=== PATIENT | female | born 1990 | race Caucasian/White ===

== ENCOUNTER 2023-07-06 12:35 | Outpatient (CLI) | payer OTHER ==
[2023-07-06 13:01] LABS: BASOPHILS % (AUTO) 0.4 %; EOSINOPHILS # (AUTO) 0.1 10^3/uL (0.0-0.7); EOSINOPHILS % (AUTO) 1.2 %; HCT - HEMATOCRIT 35.5 % (37.0-47.0); HGB - HEMOGLOBIN 11.7 g/dL (12.0-16.0); LYMPHOCYTES # (AUTO) 1.5 10^3/uL (1.5-3.5); LYMPHOCYTES % (AUTO) 18.9 %; MEAN CORPUSCULAR HEMOGLOBIN 29.1 pg (27.0-31.0); MEAN CORPUSCULAR VOLUME 88.3 fL (81.0-99.0); MEAN PLATELET VOLUME 9.8 fL (7.9-10.8); MONOCYTES # (AUTO) 0.5 10^3/uL (0.0-1.0); MONOCYTES % (AUTO) 6.1 %; NEUTROPHILS # (AUTO) 5.6 10^3/uL (1.5-6.6); PLT - PLATELET COUNT 243 10^3/uL (130-450); RED BLOOD COUNT 4.02 10^6/uL (4.20-5.40); RED CELL DISTRIBUTION WIDTH 12.7 % (12.0-15.0); WHITE BLOOD COUNT 7.7 x10^3/uL (4.8-10.8)
[2023-07-06 14:16] LABS: ESTIMATED AVERAGE GLUCOSE 82 mg/dL (70-100); HEMOGLOBIN A1c% 4.5 % (4.27-6.07)
[2023-07-07 08:11] LABS: RPR Non Reactive (Non Reactive)
[2023-07-07 09:10] LABS: HBsAG SCREEN Negative (Negative); HCV AB Non Reactive (Non Reactive); HIV SCREEN 4TH GENERATION Non Reactive (Non Reactive); VARICELLA-ZOSTER AB IGG 444 index (Immune >165)
== END 2023-07-06 12:36 | disposition home or self-care (01) ==
LOC: LAB 12:35
PROVIDERS: ATTEND Nurse Practitioner Obstetrics & Gynecology
DX: Z36.89 Encounter for other specified antenatal screening (principal)
CPT/HCPCS: 36415; 83036; 85025; 86592; 86762; 86787; 86803; 86850; 86900; 86901; 87340; 87389

== ENCOUNTER 2023-09-15 16:00 | Outpatient (CLI) | payer OTHER ==
--- NOTE | 2023-09-16 09:58 | Ultrasound Report ---
PROCEDURE: OB Anatomy Scan INDICATIONS: SUPERVISION OF OUTSIDE/PRIOR DATING DATA: Last menstrual period (LMP): 04/27/2023. LMP-based estimated date of delivery (MALATHI): 02/01/2024. First dating scan (date and location): 06/24/2023. Estimated date of delivery (MALATHI) from first dating scan: 02/03/2024. The below data below was generated using the clinical MALATHI of 02/01/2024 TECHNIQUE: Real-time scanning was performed of the fetus, with image documentation and biometric measurements. Endovaginal scanning: Not performed. COMPARISON: No previous study is available for comparison. FINDINGS: General: A single living intrauterine gestation is present. Presentation: Variable Placenta: Placental position is anterior, without previa. Amniotic fluid index: 16.3 cm, within normal limits for gestational age. heart rate: 148 beats per minute. Maternal cervical canal: 5.1 cm long; normal length is 2.5 cm or more. biometrics: Biparietal diameter: 4.9 cm, 20 weeks 6 days, 78th percentile Head circumference: 18.0 cm, 20 weeks 3 days, 57th percentile Abdominal circumference: 15.4 cm, 20 weeks 4 days, 59th percentile Femur length: 3.2 cm, 19 weeks 6 days, 33rd percentile Estimated gestational age from initial scan: 20 weeks 1 day Composite gestational age from present scan: 20 weeks 1 day Estimated weight and percentile: 345 g, 55th percentile Measurement variability in biometric dating: +/- 10 days from 12-20 weeks gestation, +/- 2 weeks from 20-30 weeks gestation, +/- 3 weeks at 30 weeks gestation or later. Anatomic survey: Neuro: Ventricles are normal at less than 10 mm. Cisterna magna is normal at 3-11 mm. Cerebellum i s normal in size and morphology. Nuchal skin fold: Normal at less than 6 mm between 14 and 20 weeks gestational age. Face: Nose and lips, facial profile are not well visualized due to positioning. Spine: No evidence for spina bifida. Heart: 4-chambered heart and left ventricular outflow tract are not well visualized due to pos itioning. Right ventricular outflow tract appears normal. Diaphragm: Diaphragm is intact. Stomach: Left-sided stomach is present. Kidneys: No hydronephrosis. Normal is less than 5 mm in 2nd trimester, less than 7 mm in 3rd trimester. Cord: 3 vessel cord has orthotopic insertion. Bladder: Normal in size. Extremities: All 4 extremities are visualized. IMPRESSION: 1.Single live intrauterine with appropriate interval growth. 2. facial profile, nose/lips, heart, and ventricular outflow tracts are not well visualized due to positioning. Recommend follow-up exam. 3. anatomic survey is otherwise within normal limits. Reviewed by: Corona Garcia MD on 09/16/2023 9:57 AM PDT Approved by: Corona Garcia MD on 09/16/2023 9:57 AM PDT Station ID: [id number]
== END 2023-09-15 16:01 | disposition home or self-care (01) ==
LOC: DI 16:00
PROVIDERS: ATTEND Nurse Practitioner Obstetrics & Gynecology
DX: Z34.02 Encounter for supervision of normal first pregnancy, second trimester (principal); Z36.89 Encounter for other specified antenatal screening

== ENCOUNTER 2023-10-05 17:12 | Outpatient (CLI) | payer OTHER ==
--- NOTE | 2023-10-06 15:35 | Ultrasound Report ---
PROCEDURE: OB Follow up INDICATIONS: SUPERVISION OF OUTSIDE/PRIOR DATING DATA: Last menstrual period (LMP): 04/27/2023. LMP-based estimated date of delivery (MALATHI): 02/01/2024. First dating scan (date and location): 06/24/2023. Estimated date of delivery (MALATHI) from first dating scan: 02/03/2024. The below data below was generated using the clinical MALATHI of 02/01/2024 TECHNIQUE: Real-time scanning was performed of the fetus, with image documentation and biometric measurements. COMPARISON: OB ultrasound 09/15/2023 FINDINGS: General: A single living intrauterine gestation is present. Presentation: Vertex Placenta: Placental position is anterior, without previa. Amniotic fluid index: 17.8 cm, within normal limits for gestational age. Largest pocket 6 cm. heart rate: 141 beats per minute. Maternal cervical canal: 4.7 cm long; normal length is 2.5 cm or more. biometrics: Estimated gestational age from initial scan: 23 weeks 0 days Other: profile, nose lips as well as 4 chambered heart and outflow tracts are within normal acosta its. IMPRESSION: Single live intrauterine with gestational age 20 weeks 0 days. Anatomy including repeat views of the profile nose/lips as well as 4 chambered heart and outflo w tracts are within normal limits. Reviewed by: Shanta Ortega MD on 10/06/2023 3:34 PM PDT Approved by: Shanta Ortega MD on 10/06/2023 3:34 PM PDT Station ID: [id number]
== END 2023-10-05 17:13 | disposition home or self-care (01) ==
LOC: DI 17:12
PROVIDERS: ATTEND Nurse Practitioner Obstetrics & Gynecology
DX: Z34.02 Encounter for supervision of normal first pregnancy, second trimester (principal); Z36.89 Encounter for other specified antenatal screening

== ENCOUNTER 2023-11-15 09:45 | Outpatient (CLI) | payer OTHER ==
[2023-11-15 11:01] LABS: HCT - HEMATOCRIT 31.1 % (37.0-47.0); HGB - HEMOGLOBIN 10.1 g/dL (12.0-16.0); MEAN CORPUSCULAR HEMOGLOBIN 29.1 pg (27.0-31.0); MEAN CORPUSCULAR HGB CONC 32.5 g/dL (32.0-36.0); MEAN CORPUSCULAR VOLUME 89.6 fL (81.0-99.0); MEAN PLATELET VOLUME 9.8 fL (7.9-10.8); RED BLOOD COUNT 3.47 10^6/uL (4.20-5.40); RED CELL DISTRIBUTION WIDTH 13.2 % (12.0-15.0); WHITE BLOOD COUNT 9.2 x10^3/uL (4.8-10.8)
== END 2023-11-15 09:46 | disposition home or self-care (01) ==
LOC: LAB 09:45
PROVIDERS: ATTEND Nurse Practitioner Obstetrics & Gynecology
DX: Z36.9 Encounter for antenatal screening, unspecified (principal)
CPT/HCPCS: 36415; 82950; 85027

== ENCOUNTER 2023-11-30 08:03 | Outpatient (CLI) | payer OTHER ==
[2023-11-30 08:37] LABS: GTT GLUCOSE,FASTING 85 mg/dL (74-109)
== END 2023-11-30 08:04 | disposition home or self-care (01) ==
LOC: LAB 08:03
PROVIDERS: ATTEND Nurse Practitioner Obstetrics & Gynecology
DX: O99.810 Abnormal glucose complicating pregnancy (principal)
CPT/HCPCS: 36415; 82951; 82952

== ENCOUNTER 2024-02-03 23:28 | Inpatient (IN) | payer OTHER ==
[2024-02-03] MEDS ORDERED: miSOPROStoL 200 MCG TABLET PR PRN (23:44)
[2024-02-03] MEDS ORDERED: METHYLERGONOVINE 0.2 MG/ML VIAL IM PRN (23:44)
[2024-02-03] MEDS ORDERED: SODIUM CHLORIDE FLUSH 0.9% 10 ML SYRINGE IVP PRN (23:44)
[2024-02-03] MEDS ORDERED: CARBOPROST TROMETHAMINE 250 MCG/ML VIAL IM PRN (23:44)
[2024-02-03] MEDS ORDERED: TRANEXAMIC ACID IN NACL 1,000 MG/100 ML BAG IV PRN (23:44)
[2024-02-03] MEDS ORDERED: TERBUTALINE 1 MG/ML VIAL SUBQ PRN (23:44)
[2024-02-03] MEDS ORDERED: miSOPROStoL 200 MCG TABLET BC PRN (23:44)
[2024-02-03] MEDS ORDERED: lidocaine 1% 20 ML MDV ID PRN (23:44)
[2024-02-03] MEDS ORDERED: LACTATED RINGERS 1,000 ML IV PRN (23:44)
[2024-02-03] MEDS ORDERED: OXYTOCIN 10 UNIT/ML VIAL IM PRN (23:44)
[2024-02-03] MEDS ORDERED: SODIUM CHLORIDE FLUSH 0.9% 10 ML SYRINGE IVP SCH (23:45)
--- NOTE | 2024-02-03 23:49 | HISTORY & PHYSICAL EXAMINATION ---
Admit History - Visit Reason Visit Reason: Contractions - : 6 Parity: 4 Premature: 0 Ectopic: 1 : 4 Care: positive: [facility] - Mother's Labs Mother's Blood Type: positive: O Mother's RH: positive: Positive GBS: positive: Group B Step Negative Rubella Status: positive: Non-immune - Other Maternal History Other Maternal History: HPI: This 33 yo @ 40+ 2 weeks by LMP and confirmed by 8+2 week ultrasound presented to L&D after several hours of early labor at home. Upon arrival she was found to be philip 1.5-5 minutes and her cervix was 5/80/-1 and vertex with intact membranes. Hx of precipitous labor. [facility] duration of her which has remained uncomplicated. No Headache, visual changes or right upper quadrant abdominal pain. Denies significant N/V. In the event of an emergency, accepts the administration of blood products. ROS: All other symptoms reviewed and were negative except per HPI. LMP 04/27/2023, MLAATHI by LMP 02/01/2024 MALATHI by 8+2 week u/s: 02/03/2024 Final MALATHI 02/01/2024 Desires genetic testing and MsAFP. Declines carrier screening which she has had with previous pregnancies. She is carrier for CF but her is not. Immunization history: Has received COVID vaccine x 3, last received 2 years ago. Has not received influenza vaccine (Mar - September). Prior history of a blood transfusion? No. stopper setter History: Term NSVB x 4. SAB x 1. Last pap 01/2022 WNL, no hx abnormal. Denies history of gonorrhea, chlamydia, genital herpes, oral herpes or any other STI. Sexual partner does NOT have HSV (oral or genital). 1 (vaginal delivery) 02/25/2016 2 SAB (miscarriage) 10/2017 3 (vaginal delivery) 08/01/2018 precipitous delivery 4 (vaginal delivery) 11/12/2019 5 (vaginal delivery) 05/11/2022 precipitous delivery 6 Current Medical Hx: Anxiety/depression, Asthma- mild, intermittent with flares only with URI. Rarely needs inhaler. Surgical Hx: Cholecystectomy @ age 17 Social Hx: Monogamous with male partner Jonathan who is active duty [employer]. He is currently deployed and is scheduled to return home at the end of July. 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 Stopped drinking alcohol due to . Denies current use of tobacco, marijuana or other recreational drugs. Reports that she is safe in current rela tionship. Family Hx: Denies family history of congenital anomalies, Cystic Fibrosis or chromosomal abnormalities. Lymphedema - mother; Diabetes - mother; Heart disease - PGF; Pancreatic cancer caused - PGM Allergies: NKDA. Sensitivity to IV contrast. Medications: PNV, sertraline 150mg PO once daily Pre- BMI: 32.3 Total maternal weight gain: 31# Blood Type: O Positive Antibody Screen Negative Rubella Immune Treponema/RPR Non-Reactive Hep B Surface Ag Non-Reactive Hep C Virus Non-Reactive HIV-1/HIV-2 Screen Non-Reactive Varicella AB Screen Immune gonorrhea NOT DETECTED Chlamydia NOT DETECTED Group B Strep Negative Physical exam: Normocephalic, atraumatic Heart RRR w/o M/G/R Lungs CTAB Abdomen gravid, soft, nontender. EFW 3800 FHR baseline 140, moderate variability, + accelerations, no decelerations Contractions palpate moderate every 1.5-5, minutes with soft resting tone SVE 5/80/-1, vertex, membranes intact Bilateral LE's no edema Mood is good. Assessment: 33 yo @ 40+2 weeks gestation by 8+2wk U/S Active labor FHR 140, Cat I GBS NEG Plan: Admit to [facility] for Expectant management Continuous monitoring/ Intermittent heart rate auscultation. Jacuzzi PRN. Nitrous oxide PRN. Epidural PRN Maternal Request. Anticipate . Patient verbally consents to my participation in her care in my role as a student nurse nutrition club ambassador. GRETA Nickerson, Student Nurse Senior Investment Analyst Plan for Labor - Plan For Labor I expect patient to be DC'd or transferred within 96 hours.: Yes
[2024-02-04 00:16] LABS: BASOPHILS % (AUTO) 0.5 %; EOSINOPHILS % (AUTO) 0.5 %; HCT - HEMATOCRIT 35.8 % (37.0-47.0); HGB - HEMOGLOBIN 11.9 g/dL (12.0-16.0); LYMPHOCYTES # (AUTO) 1.5 10^3/uL (1.5-3.5); LYMPHOCYTES % (AUTO) 18.2 %; MEAN CORPUSCULAR HEMOGLOBIN 29.6 pg (27.0-31.0); MEAN CORPUSCULAR HGB CONC 33.2 g/dL (32.0-36.0); MEAN CORPUSCULAR VOLUME 89.1 fL (81.0-99.0); MEAN PLATELET VOLUME 10.9 fL (7.9-10.8); MONOCYTES # (AUTO) 0.6 10^3/uL (0.0-1.0); NEUTROPHILS # (AUTO) 5.9 10^3/uL (1.5-6.6); NEUTROPHILS % (AUTO) 73.1 %; PLT - PLATELET COUNT 194 10^3/uL (130-450); RED BLOOD COUNT 4.02 10^6/uL (4.20-5.40)
[2024-02-04] MEDS: OXYTOCIN/SODIUM CHLORIDE 500 ML IV PRN (02:27)
[2024-02-04] MEDS ORDERED: ONDANSETRON ODT 4 MG TABLET TL PRN (02:46)
[2024-02-04] MEDS ORDERED: WITCH HAZEL/GLYCERIN 1 PAD TOP PRN (02:46)
[2024-02-04] MEDS ORDERED: HYDROCORTISONE 1% CREAM 28 GM TUBE PR PRN (02:46)
[2024-02-04] MEDS: ACETAMINOPHEN 500 MG TABLET PO SCH (03:00)
--- NOTE | 2024-02-04 03:09 | DELIVERY NOTE ---
Delivery Note - Labor Labor: positive: Spontaneous - Delivery Method Delivery Method: positive: Spontaneous vaginal delivery - Presentation Presentation: positive: Vertex, BASILIA - left occiput anterior - Nuchal Cord Nuchal Cord: positive: None - Anesthetic Anesthetic Type: - Amniotic Fluid Description Amniotic Fluid Description: positive: Clear - Episiotomy Type Episiotomy Type: positive: None - Laceration Laceration: positive: None - Delivery Outcome Delivery Outcome: positive: Livebirth - : positive: Placed in direct skin contact with mother, Bulb syringe, Stimulated, Warmed, [place] used sex: positive: Female - Cord Cord: positive: 3 vessels - Placenta Placenta: positive: Intact, Spontaneous - Estimated Blood Loss Estimated Blood Loss (in cc): 350 - Post Delivery Events Post Delivery Events: positive: No post delivery events - Delivery Comments (Free Text/Narrative) Delivery Comments (Free Text/Narrative): This 33 -year-old, . @ 40+2 weeks gestation by 7 week ultrasound/ LMP presented in active labor and in good condition. Cervix was 5cm and Vertex presentation by exam. GBS neg, no treatment indicated. Labor unmedicated and progressed naturally. FHR pattern demonstrated 140's baseline in a category I prior to second stage. Normal labor course. SROM occurred @ 0218. She then progressed to complete and pushing began @ 0202 and ready to deliver. : Normal spontaneous vaginal delivery of a viable female on 02/03/2023 @ 0220. No nuchal cord. The was placed on maternal abdomen, stimulated, dried and placed skin to skin. Apgars 7 & 9 @ 1 & 5 minutes. weight: XXX. The umbilical cord was allowed to stop pulsating at which time it was doubly clamped by delivering provider and cut by FOB. 3VC. Cord blood was obtained. Fundal massage and gently cord traction applied for active management of the third stage, placenta delivered spontaneously and intact and appeared normal @ 0227. EBL 350cc. Placenta was WAS NOT sent to pathology. Pitocin administered via IV for hemostasis and added to the IV fluid and allowed to run freely. Uterine massage was performed until uterus was deemed firm. Perineum intact. Needle and sponge counts were correct. Uterine fundus firm and there is no excessive bleeding. Tissues well ap proximated. Family bonding well. Both mother and baby are in stable condition. Patient verbalized consent for my participation in her delivery in my role as Student Nurse Manager Respiratory. GRETA Nickerson, Student Nurse Manager Respiratory
[2024-02-04] MEDS: IBUPROFEN 800 MG TABLET PO SCH (06:27)
--- NOTE | 2024-02-04 10:39 | Discharge Plan ---
Discharge Plan Problem Reviewed?: Yes Disposition: Home, Self Care Diet: Regular Activity Restrictions: No Restrictions Shower Restrictions: No Driving Restrictions: No Weight Bearing: Full Weight Instruction Topics: Self Care, Nutrition No Smoking: If you smoke, Please STOP! Call for help. Follow-up with: Sadia Garcia CNM, ARNP [Provider Admit Priv/Credential] -
--- NOTE | 2024-02-04 10:57 | DISCHARGE SUMMARY ---
Discharge Summary Admit Date: 02/03/24 Discharge Date: 02/04/24 Primary Care Provider: MERNA Garcia Code Status: Attempt Resuscitation Condition at Discharge: Good Discharge Disposition: 01 Home, Self Care - HPI History of Present Illness: Date of Admission: 02/03/2024 Date of Discharge: 02/04/2024 Diagnosis on admission: 1. 33 yo @ 40+2 weeks gestation by 8+2wk U/S 2. Active labor 3. GBS NEG Diagnosis on Discharge 1. 33 yo 2. PPD #1 3. Normal course 4. Exclusively . Brief History: [facility] who presented on 02/03/2024 with complaints of contractions. She was found to be philip regularly and quickly progressed from 5cm to complete. Labor progressed naturally without medication pain management. She spontaneously delivered a viable female infant apgars 7 and 9 at 1 and 5 minutes respectively. EBL 350 ml. intact perineum. weight: 3872g. She has been doing well in her course. She desires to be discharged home to [facility] status if baby not able to be discharged today. She is ambulating and tolerating a regular diet. She is urinating without difficulty and her lochia is normal. Her pain is well controlled without narcotic management. She will be discharged to home today on day 1 and encouraged IBU, tylenol and stool softeners PRN. She intends to follow up with [facility] in 1 week for telehealth (@1015 on 02/07/2024). She has been given precautions to call if she has any new or worsening sx such as fevers, chills, abdominal pain, increasing bleeding, or foul smelling vaginal lochia. preeclamptic precautions reviewed as well. VZV: immune Rubella: immune RH: O+ GRETA Nickerson, Student Nurse [place] - ALLERGIES Allergies/Adverse Reactions: Allergies Allergy/AdvReac Type Severity Reaction Status Date / Time IV contrast dye Allergy Anxiety Uncoded 02/04/24 01:30 - PHYSICAL EXAM AT DISCHARGE General Appearance: positive: No acute distress Eyes Bilateral: positive: Normal inspection Respiratory: positive: No respiratory distress Cardiovascular: positive: Regular rate & rhythm Peripheral Pulses: positive: 0 Abdomen: positive: Other (FF below U, small lochia) Skin: positive: Color nml Extremities: positive: Non-tender Neurologic/Psychiatric: positive: Oriented x3 - LABS Result Diagrams: 02/03/24 23:52 - QUALITY (Female Hip Fx Only) Was patient sent home on osteoporosis medication?: No - FOLLOW UP Follow Up: 1 week telehealth with MERNA Miranda 02/07/2024 @ 10:15 - TIME SPENT Time Spent in Discharge (Minutes): 20
[2024-02-04] MEDS: SERTRALINE 50 MG TABLET PO SCH (12:24)
[2024-02-04 13:28] VITALS: BP 97/48
--- NOTE | 2024-02-04 14:15 | Labor Flowsheet ---
Labor Flowsheet Datetime Report Generated by CPN: 02/04/2024 14:15 Datetime: 02/04/2024 13:10 VITAL SIGNS NBP Sys/Leda/Mean (mmHg): 97 : 48 : 60 Pulse: 65 Datetime: 02/04/2024 04:20 Stage of : Recovery PAIN Pain Scale: 7 Pain Presence: Intermittent Pain Type: Cramping; Ache Pain Location: Abdomen Pain Goal: 3 Datetime: 02/04/2024 04:14 Membranes Ruptured Date/Time: 02/04/2024 02:18 Datetime: 02/04/2024 03:20 Respirations: 17 Datetime: 02/04/2024 02:35 SpO2 (%): 98 Temperature (C): 36.7 Temperature Route: Oral Datetime: 02/04/2024 02:27 COMMUNICATION Communication Comments: delivery of placenta Datetime: 02/04/2024 02:22 UTERINE ACTIVITY Monitor Mode: External Frequency (min): 1-3min Quality: Moderate Duration (sec): 60-90sec Pattern: Normal: <= 5 Contractions in 10 Minutes Resting Tone (Palpate): Relaxed ASSESSMENT A Monitor Mode: Telemetry FHR Baseline Rate : 150 FHR Baseline Changes: No Baseline Change Variability: Moderate 6-25 bpm Accelerations: 15X15 Decelerations: None Category: Category I Datetime: 02/04/2024 02:20 Comments: viable delivery of baby girl Datetime: 02/04/2024 02:18 Membrane Status: Ruptured Membranes Rupture Method: Spontaneous Amniotic Fluid Color: Clear Amniotic Fluid Amount: Moderate Amniotic Fluid Odor: Normal Datetime: 02/04/2024 02:02 VAGINAL EXAM Dilatation (cm): 10.0 Datetime: 02/04/2024 01:30 Oxygen Method: Room Air Datetime: 02/03/2024 23:52 PATIENT CARE IV/Blood Work: IV Started; Labs Drawn with IV Start; IV Saline Locked Patient Care Comments: T_S, CBC 20g Lwrist Datetime: 02/03/2024 23:44 LaborFlag: Labor
== END 2024-02-04 14:14 | disposition home or self-care (01) | DRG 807 ==
LOC: WFO 23:28 → FBP 23:29 → WFO 23:43 → FBP 23:44
PROVIDERS: ADMIT Nurse Practitioner Obstetrics & Gynecology; ATTEND Nurse Practitioner Obstetrics & Gynecology
PROC: 10E0XZZ Delivery of Products of Conception, External Approach (ICD-10-PCS; principal; 2024-02-04)
DX: O99.52 Diseases of the respiratory system complicating childbirth (principal); Z37.0 Single live birth; J45.20 Mild intermittent asthma, uncomplicated; O48.0 Post-term pregnancy; Z3A.40 40 weeks gestation of pregnancy; O99.344 Other mental disorders complicating childbirth; F32.A Depression, unspecified; F41.9 Anxiety disorder, unspecified; Z79.899 Other long term (current) drug therapy; Z87.59 Personal history of other complications of pregnancy, childbirth and the puerperium
CPT/HCPCS: 59409; 85025; 86850; 86900; 86901; A9270